=== PATIENT | male | born 1995 | race Two or more races ===

== ENCOUNTER 2017-07-25 16:59 | Inpatient (IN) | payer MEDICAID, OTHER ==
[~2017-07-25] VITALS: Ht 180.3 cm; Wt 108.6 kg
[2017-07-25 17:35] LABS: HEMATOCRIT 47.4 % (39.2-51.8); WHITE BLOOD COUNT 12.9 x10^3/uL (4.5-13.2)
[2017-07-25 17:47] LABS: BLOOD UREA NITROGEN 13 mg/dL (7-18)
[2017-07-25] MEDS ORDERED: ONDANSETRON 2MG/ML, 2ML IVPush ONE (18:30)
[2017-07-25] MEDS ORDERED: MORPHINE SULFATE 4 MG/ML, 1ML IVPush PRN (18:30)
[2017-07-25] MEDS ORDERED: SODIUM CHLORIDE FLUSH 10ML SYR IVF ONE (18:30)
[2017-07-25] MEDS ORDERED: morphine SULFATE 10 MG/ML, 1ML ONE (18:41)
[2017-07-25] MEDS ORDERED: ONDANSETRON 2MG/ML, 2ML ONE (18:41)
[2017-07-25] MEDS ORDERED: LIDOCAINE/PF 1%-EPI 1:200K, 30 ML INFIL ONE (20:00)
[2017-07-25] MEDS ORDERED: DEXAMETHASONE 4 MG/ML, 1ML ONE (20:15)
[2017-07-25] MEDS ORDERED: DEXAMETHASONE 4 MG/ML, 1ML IVPush SCH (20:30)
[2017-07-25] MEDS ORDERED: AMPICILLIN/SULBACTAM 3 GM in SODIUM CHLORIDE 0.9% 100 ML IV ONE (20:30)
[2017-07-25] MEDS ORDERED: ACETAMINOPHEN 325 MG TABLET PO PRN (22:00)
[2017-07-25] MEDS ORDERED: BISACODYL 10 MG SUPP PR PRN (22:00)
[2017-07-25] MEDS ORDERED: POLYETHYLENE GLYCOL 17 GM PACKET PO PRN (22:00)
[2017-07-25] MEDS ORDERED: ONDANSETRON 2MG/ML, 2ML IVPush PRN (22:00)
[2017-07-25] MEDS ORDERED: OXYcodone IR 5MG TABLET PO PRN (22:00)
[2017-07-25 22:15] VITALS: BP 149/65
[2017-07-25 22:54] VITALS: BP 149/88
[2017-07-25] MEDS: SODIUM CHLORIDE 0.9% 1,000 ML IV SCH (23:46)
[2017-07-25] MEDS: HEPARIN 5,000 UNITS/ML, 1ML SQ SCH (23:46)
[2017-07-26 01:29] VITALS: BP 129/78
[2017-07-26] MEDS: DEXAMETHASONE 4 MG/ML, 1ML IVPush SCH ×3 (01:32→14:02)
[2017-07-26] MEDS: AMPICILLIN/SULBACTAM 3 GM in SODIUM CHLORIDE 0.9% 100 ML IV SCH ×3 (01:32→14:00)
[2017-07-26 04:58] LABS: HEMATOCRIT 46.6 % (39.2-51.8); HEMOGLOBIN 16.1 g/dL (13.7-18.0); WHITE BLOOD COUNT 10.8 x10^3/uL (4.5-13.2)
[2017-07-26 05:18] LABS: BLOOD UREA NITROGEN 11 mg/dL (7-18)
[2017-07-26 05:23] LABS: ASPARTATE AMINO TRANSFERASE 26 U/L (15-37)
[2017-07-26] MEDS: HEPARIN 5,000 UNITS/ML, 1ML SQ SCH ×2 (06:00→14:02)
[2017-07-26 07:05] VITALS: BP 133/82
[2017-07-26] MEDS: SODIUM CHLORIDE 0.9% 1,000 ML IV SCH (07:58)
[2017-07-26] MEDS ORDERED: SENNA/DOCUSATE TABLET PO SCH (09:00)
[2017-07-26] MEDS ORDERED: PRED20TA PO (09:30)
[2017-07-26] MEDS ORDERED: AMOX1TAB64 PO (09:30)
[2017-07-26] MEDS ORDERED: FLU VACC QS2017-18 (36MOS+) UP/PF 0.5 ML IM-VACC ONE (11:30)
[2017-07-26 12:45] VITALS: BP 149/83
== END 2017-07-26 13:40 | disposition home or self-care (01) | DRG 159 ==
LOC: ED 20:07 → EDIP 20:08 → ED 20:45 → 4NOR 21:20
PROVIDERS: ADMIT Internal Medicine; ATTEND Internal Medicine
DX: K14.0 Glossitis (principal); D72.829 Elevated white blood cell count, unspecified; K14.6 Glossodynia; Z82.49 Family history of ischemic heart disease and other diseases of the circulatory system; F12.90 Cannabis use, unspecified, uncomplicated; I10 Essential (primary) hypertension; Z88.8 Allergy status to other drugs, medicaments and biological substances
CPT/HCPCS: 36415; 80048; 80053; 82040; 83605; 85025; 90686; 96374; 96375; J0295; J1100; J1644; J2405; J7030